=== PATIENT | male | born 1970 | race African-American/Black ===

== ENCOUNTER 2017-02-15 15:52 | Emergency (ER) | payer OTHER ==
[~2017-02-15] VITALS: Ht 188 cm; Wt 133.4 kg
[2017-02-15 15:59] VITALS: BP 133/95
[2017-02-15] MEDS ORDERED: LIDOCAINE VISCOUS 2% 20 ML UDC PO ONE (16:15)
[2017-02-15] MEDS ORDERED: ALUMINUM HYD/MAG/SIMETHICONE 30 ML UDC PO ONE (16:15)
[2017-02-15] MEDS ORDERED: DICYCLOMINE HCL LIQUID 10 MG/5 ML UDC PO ONE (16:15)
[2017-02-15 16:53] VITALS: BP 141/74
== END 2017-02-15 16:53 | disposition home or self-care (01) ==
LOC: MED 15:52
DX: S10.11XA Abrasion of throat, initial encounter (principal); K21.9 Gastro-esophageal reflux disease without esophagitis; I10 Essential (primary) hypertension; X58.XXXA Exposure to other specified factors, initial encounter; Y93.89 Activity, other specified; Y92.89 Other specified places as the place of occurrence of the external cause; Y99.8 Other external cause status
CPT/HCPCS: 99283

== ENCOUNTER 2019-03-12 21:16 | Emergency (ER) | payer OTHER ==
[~2019-03-12] VITALS: Ht 182.9 cm; Wt 136.1 kg
[2019-03-12 21:18] VITALS: BP 125/86
--- NOTE | 2019-03-12 21:23 | NUR ---
pt c/o throat complaint today. pt states he ate some chips/food and scratched throat. denies sob. lungs clear bilaterally. rr even and unlabored. pt on 97% ra. no coughing at this time. no swelling noted. vss. [id number]. bed is down, locked, bed rail x 1, ermd to see pt. [facility] hx: htn
--- NOTE | 2019-03-12 21:23 | NUR ---
PT AMBULATED TO ER BED 7
--- NOTE | 2019-03-12 21:34 | NUR ---
DR. STONE BEDSIDE EVALUATING PT
--- NOTE | 2019-03-12 21:53 | NUR ---
PT TO XRAY VIA WHEELCHAIR
--- NOTE | 2019-03-12 21:59 | NUR ---
PT BACK FROM RAD
[2019-03-12 22:37] VITALS: BP 127/85
--- NOTE | 2019-03-12 22:37 | NUR ---
Patient discharged with v/s stable. Written and verbal after care instructions given and explained. Patient verbalized understanding. Ambulatory with steady gait. All questions addressed prior to discharge. PT INTRUCTED THAT XRAY WAS NORMAL, NO FINDINGS.
== END 2019-03-12 22:37 | disposition home or self-care (01) ==
LOC: MED 21:16
DX: R07.0 Pain in throat (principal); K08.89 Other specified disorders of teeth and supporting structures; K21.9 Gastro-esophageal reflux disease without esophagitis; I10 Essential (primary) hypertension
CPT/HCPCS: 70360; 71045; 99283

== ENCOUNTER 2019-04-27 13:44 | Emergency (ER) | payer OTHER ==
[~2019-04-27] VITALS: Ht 182.9 cm; Wt 136.1 kg
[2019-04-27 13:52] VITALS: BP 143/108
--- NOTE | 2019-04-27 13:55 | NUR ---
PT AMBULATED TO CHAIR
--- NOTE | 2019-04-27 14:06 | NUR ---
PATIENT PRESENTS TO ED DUE TO SWALLOWING A BIG PIECE OF CHICKEN WITHOUT CHEWING IT. PT IS WORRIED ABOUT CHOKING. DENIES THROAT PAIN AND . NO SWELLING OR REDNESS OF THROAT NOTED. PATIENT STATES PAIN OF 0/10 AT THIS TIME; VSS; ER MD MADE AWARE OF PT STATUS. PMH HTN MEDS: UNRECALLED HTN MEDS ALLERGIES NONE
--- NOTE | 2019-04-27 14:40 | NUR ---
Patient discharged with v/s stable. Written and verbal after care instructions given and explained. Patient verbalized understanding. Ambulatory with steady gait. All questions addressed prior to discharge. Advised to follow up with PMD.
[2019-04-27 14:41] VITALS: BP 143/108
== END 2019-04-27 14:40 | disposition home or self-care (01) ==
LOC: MED 13:44
DX: T18.9XXA Foreign body of alimentary tract, part unspecified, initial encounter (principal); K21.9 Gastro-esophageal reflux disease without esophagitis; I10 Essential (primary) hypertension; X58.XXXA Exposure to other specified factors, initial encounter; Y93.89 Activity, other specified; Y92.89 Other specified places as the place of occurrence of the external cause; Y99.8 Other external cause status
CPT/HCPCS: 99281

== ENCOUNTER 2020-04-06 14:37 | Emergency (ER) | payer OTHER ==
[~2020-04-06] VITALS: Ht 182.9 cm; Wt 147.5 kg
[2020-04-06 14:43] VITALS: BP 115/84
--- NOTE | 2020-04-06 15:45 | NUR ---
PT TAKEN TO BED 9.
--- NOTE | 2020-04-06 15:48 | NUR ---
49 y/o male from home c/o left arm pain x 3 days. States pain starts in left shoulder and radiates to hand. Pt unable to lift arm without assistance from right arm. No visible deformity. 7/10 aching/sharp pain upon movement. Skin warm, dry, intact. Positioned for comfort. VSS medhx: HTN
[2020-04-06] MEDS ORDERED: KETOROLAC 60 MG/2 ML VIAL IM ONE (15:50)
--- NOTE | 2020-04-06 16:02 | NUR ---
X-Ray at bedside.
[2020-04-06 16:38] VITALS: BP 115/84
--- NOTE | 2020-04-06 16:38 | NUR ---
Patient discharged with v/s stable. Written and verbal after care instructions given and explained. Patient alert, oriented and verbalized understanding of instructions. Ambulatory with steady gait. All questions addressed prior to discharge. ID band removed. Patient advised to follow up with PMD. Rx of naprosyn 500mg tab 1-2 times a day PRN pain, robaxin 750mg 1 tab QID PRN pain given. Patient educated on indication of medication including possible reaction and side effects. Opportunity to ask questions provided and answered.
== END 2020-04-06 16:38 | disposition home or self-care (01) ==
LOC: MED 14:37
DX: M25.512 Pain in left shoulder (principal); K21.9 Gastro-esophageal reflux disease without esophagitis; I10 Essential (primary) hypertension
CPT/HCPCS: 73030; 96372; 99283; J1885; Q0092

== ENCOUNTER 2024-03-01 10:05 | Emergency (ER) | payer MEDICAID, OTHER ==
[~2024-03-01] VITALS: Ht 182.9 cm; Wt 113.4 kg
[2024-03-01 10:11] VITALS: BP 144/92; PULSE 89; RESP 22; TEMP 98; O2SAT 99
[2024-03-01 10:50] VITALS: O2SAT 99
[2024-03-01] MEDS ORDERED: ONDA-188 PO (11:05)
[2024-03-01] MEDS: ONDANSETRON 4 MG ODT PO ONE (11:19)
== END 2024-03-01 11:23 | disposition home or self-care (01) ==
LOC: MED 10:05
DX: S00.512A Abrasion of oral cavity, initial encounter (principal); K21.9 Gastro-esophageal reflux disease without esophagitis; I10 Essential (primary) hypertension; Z79.899 Other long term (current) drug therapy; W50.3XXA Accidental bite by another person, initial encounter; Y93.89 Activity, other specified; Y92.89 Other specified places as the place of occurrence of the external cause; Y99.8 Other external cause status
CPT/HCPCS: 90471; 90715; 99283; Q0162